=== PATIENT | female | born 1995 | race Caucasian/White ===

== ENCOUNTER 2020-09-14 07:27 | Day surgery (SDC) | payer BC, SELFPAY ==
[~2020-09-14] VITALS: Ht 172.7 cm; Wt 122.5 kg
[2020-09-14 07:53] LABS: HCG,QUAL RESULT NEGATIVE (NEGATIVE)
[2020-09-14] MEDS ORDERED: DEXAMETHASONE SOD PHOSPHATE 4 MG/ML VIAL IVP ONE (09:21)
[2020-09-14] MEDS ORDERED: BUPIVACAINE /PF 0.25% 30 ML VIAL INJ ONE (09:21)
[2020-09-14] MEDS ORDERED: DESFLURANE 15 MIN GAS INH ONE (09:21)
[2020-09-14] MEDS ORDERED: SUGAMMADEX SODIUM 200 MG/2 ML VIAL IV ONE (09:21)
[2020-09-14] MEDS ORDERED: MIDAZOLAM HCL 5 MG/5 ML VIAL IVP ONE (09:21)
[2020-09-14] MEDS ORDERED: LR 1,000 ML IV.SOLN IV ONE (09:21)
[2020-09-14] MEDS ORDERED: PROPOFOL 200MG/ 20ML VIAL (DIPRIVAN) IV ONE (09:21)
[2020-09-14] MEDS ORDERED: LIDOCAINE 1% 10 MG/ML, 20 ML MDV IM ONE (09:21)
[2020-09-14] MEDS ORDERED: ROCURONIUM BROMIDE 10 MG/ML (ZEMURON) IV ONE (09:21)
[2020-09-14] MEDS ORDERED: ONDANSETRON HCL 4 MG/2 ML VIAL IVP ONE (09:21)
[2020-09-14] MEDS ORDERED: fentaNYL CITRATE 250 MCG/5 ML AMP IV ONE (09:21)
[2020-09-14] MEDS ORDERED: METOPROLOL TARTRATE 5 MG/5 ML VIAL IVP ONE (09:21)
[2020-09-14] MEDS ORDERED: LR 1,000 ML IV SCH (11:00)
[2020-09-14] MEDS ORDERED: MIDAZOLAM HCL 2 MG/2 ML VIAL (VERSED) IVP PRN (11:00)
[2020-09-14] MEDS ORDERED: METOCLOPRAMIDE HCL 10 MG/2 ML VIAL IVP PRN (11:00)
[2020-09-14] MEDS ORDERED: ONDANSETRON HCL 4 MG/2 ML VIAL IVP PRN (11:00)
[2020-09-14] MEDS ORDERED: HYDROmorphone 1 INJ. 1 MG/ML CARTRIDGE IVP PRN ×2 (11:00)
[2020-09-14] MEDS ORDERED: MEPERIDINE HCL/PF 25 MG/ML DISP.SYRIN IVP PRN (11:00)
[2020-09-14] MEDS ORDERED: ONDANSETRON HCL 4 MG/2 ML VIAL ONE (11:34)
[2020-09-14] MEDS ORDERED: METOCLOPRAMIDE HCL 10 MG/2 ML VIAL IVP ONE (12:10)
[2020-09-14 12:37] VITALS: BP_SYST 115
== END 2020-09-14 13:10 | disposition home or self-care (01) ==
LOC: SDS 07:27 → SMU 07:27 → SDS 13:10
PROVIDERS: ATTEND Otolaryngology
DX: J35.01 Chronic tonsillitis (principal); R07.0 Pain in throat; K21.9 Gastro-esophageal reflux disease without esophagitis; N92.0 Excessive and frequent menstruation with regular cycle; R13.12 Dysphagia, oropharyngeal phase; E66.3 Overweight; Z79.899 Other long term (current) drug therapy; Z20.828 Contact with and (suspected) exposure to other viral communicable diseases
CPT/HCPCS: 36415; 42826; 84703 ×2; 88304; C9399; J1100; J2001; J2250; J2405; J2704; J2765; J3010; J3490 ×2; J7120; U0003